=== PATIENT | female | born 1985 | race Caucasian/White ===

== ENCOUNTER → 2020-11-23 10:50 | Outpatient (CLI) | payer MEDICAID, SELFPAY ==
[2020-11-23 12:31] LABS: Hematocrit 34.3 % (37-47); Hemoglobin 11.3 g/dL (12.0-15.0); Mean Corp Hgb Conc 32.9 g/dL (32-36); Mean Corpuscular Hgb 31.4 pg (27.0-32.0); Mean Corpuscular Volume 95.3 fL (81-99); Mean Platelet Vol. 10.6 fl (6.2-12.0); Platelet Count 171 K/mm3 (150-450); RBC Distribution Width CV 12.5 % (11.6-14.6); RBC Distribution Width SD 43.2 fl (35.1-43.9); White Blood Count 11.6 K/mm3 (4.4-11.0)
[2020-11-23 12:37] LABS: Glucose Challenge Gest 1H 50g 134 mg/dL (70-140)
== END ==
PROVIDERS: PCP Family Medicine; Visit Provider Obstetrics & Gynecology
DX: Z34.83 Encounter for supervision of other normal pregnancy, third trimester (principal)
CPT/HCPCS: 36415; 82950; 85027

== ENCOUNTER → 2021-01-25 14:27 | Outpatient (CLI) | payer MEDICAID, SELFPAY | PROVIDERS: PCP Family Medicine | DX: Z36.85 Encounter for antenatal screening for Streptococcus B (principal) | CPT/HCPCS: 87081 ==

== ENCOUNTER 2021-02-12 14:45 | Inpatient (IN) | payer MEDICAID, SELFPAY ==
[2021-02-12] VITALS (17 sets, daily range): BP systolic 96–134; BP diastolic 57–85; PULSE 55–92; RESP 14–18; TEMP 36–36.8; O2SAT 96–100; BMI 25.2
[2021-02-12] MEDS: Lactated Ringers 1,000 ML 999 ML IV (15:00)
--- NOTE | 2021-02-12 15:10 | HP.PCM.OB_ITS ---
History and Physical Date of Admission: 02/12/21 Chief complaint: Contractions History of present illness: 35-year-old G6, P5 living 4 at 39 weeks and 3 days with TAMRA 02/16/2021 by LMP arrives with contractions. Denies headache, visual changes, chest pain, shortness of breath, nausea vomiting, right upper quadrant pain. Patient states good movement. 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 Denies alcohol use Family history: Denies a history DVT or PE Review of systems: Besides above pertinent positives a full review of systems was performed and found to be negative Physical exam: Vitals: Blood pressure 112/72 pulse 75 SPO2 97% on room air temp 98.2 Fahrenheit General: Normal-appearing no acute distress HEENT: Normocephalic atraumatic no cervical lymphadenopathy Cardiac/respiratory: No use of accessory muscles, nonlabored breathing Abdomen: Soft, nontender, gravid Pelvic exam: Cervical exam 4/70/-1. Bulging membranes Extremities: No peripheral edema normal peripheral pulses Psych: Normal affect normal demeanor nonpressured speech Labs: Pending Assessment plan: 35-year-old living for at 39 weeks and 3 days in labor with [facility]ingeal [facility] and was scheduled for primary section on 02/13/2021 at [facility] for these milena sons. Plan was to evaluate baby by neurosurgery at time of delivery for possible neurosurgery. At this time with labor and grand multipara too unstable to transport. Discussed with regional owner operator truck driver, to cover defect at time of delivery and plan shipment of baby to [facility]. After discussion with regional owner operator truck driver and transport team which is 1 hour from hospital, will expectantly manage as long as membranes intact and no further dilation to increase transport success. For 2 g Ancef. Educated mom on delivery plan and plan for transportation for baby, patient states understanding wish to proceed. Patient also wants permanent sterilization, has tubal consent. We will proceed forward with primary section as above with bilateral tubal ligation
[2021-02-12 15:20] LABS: Absolute Lymphocyte Count 1.97 X10^3/uL (0.83-4.51); Absolute Neutrophil Count 8.3 X10^3/uL (2.0-7.7); Basophil# 0.03 X10^3/uL; Basophil% 0.3 % (0-1); Eosinophil# 0.17 X10^3/uL; Eosinophils% 1.5 % (0-5); Hematocrit 33.3 % (37-47); Hemoglobin 11.3 g/dL (12.0-15.0); Lymphocyte # 1.97 X10^3/ul (0.83-4.51); Lymphocyte % 17.5 % (19-41); Mean Corp Hgb Conc 33.9 g/dL (32-36); Mean Corpuscular Hgb 31.4 pg (27.0-32.0); Mean Corpuscular Volume 92.5 fL (81-99); Mean Platelet Vol. 11.1 fl (6.2-12.0); Monocyte# 0.62 X10^3/uL; Monocyte% 5.5 % (0-10); NRBC Flagged by Analyzer 0 % (0-5); Neutrophil # 8.34 X10^3/uL (2.7-7.7); Neutrophil % 74.2 % (47-70); Platelet Count 199 K/mm3 (150-450); RBC Distribution Width CV 12.6 % (11.6-14.6); RBC Distribution Width SD 42.9 fl (35.1-43.9); White Blood Count 11.2 K/mm3 (4.4-11.0)
[2021-02-12] MEDS: Acetaminophen 500 MG Tablet 1000 MG PO ×2 (15:21→21:38)
[2021-02-12] MEDS: Sodium Citrate/Citric Acid 30 ML UDC PO (15:21)
[2021-02-12] MEDS: Cefazolin 2 GM in 0.9% Normal Saline 100 ML IV (16:00)
[2021-02-12] MEDS: Lactated Ringers 1,000 ML 150 ML IV (16:01)
--- NOTE | 2021-02-12 16:32 | FALS_PTH ---
PATIENT: GARETT HICKS LOC: [facility] U#:[id number] AGE/SX: 35/F ROOM: WP006 RE02/12/[address]: Dr. Ge Galeas MD : 1985 BED: 1 DIS: 02/13/2021 SPEC #: [id number] RECD: 02/12/21 17:48 STATUS: NARINDER REMac #: [id number] SELENA: 02/12/21 16:[address]: Ge Galeas DEPT: SURGICAL PATHOLOGY RECD BY: Inga Le ENTERED: 02/13/21 08:46 SP TYPE: FALL TUBES OTHR DR: Dr. Melanie Phoenix MD Tissues: Fallopian tube Procedures: Surgery Specimen Level II HEADER OPERATION: Tubal ligation PRE-OP DIAGNOSIS: Sterilization TISSUE SUBMITTED: Bilateral fallopian tubes MICROSCOPIC DIAGNOSIS Bilateral fallopian tubes, salpingectomies: Two complete segments of fallopian tubes. Benign paratubal cyst (2.5 cm). AM:maria fernanda 02/14/2021 MICROSCOPIC DESCRIPTION Slides are reviewed. GROSS DESCRIPTION Received in fixative is one container labeled with the patient's name and designated bilateral fallopian tubes. The specimen consists of two fallopian tubes with an average length of 8 cm and has an average diameter of 1 cm. Both fallopian tubes have normal fimbriated ends. No mass lesions are identified. One fallopian tube has a suture. The fallopian tube with suture has paratubal cyst containing clear fluid. The cyst measures 2.5 cm in greatest dimension. Medical Services Coordinator sections are submitted in two cassettes as follows: 1 - fallopian tube without suture, 2 - fallopian tube with suture and paratubal cyst. / AM:maria fernanda 02/13/21 TC:1 CPT: 15696, 99189
[2021-02-12 17:04] LABS: Amphetamine Urine VISTA NEGATIVE (<1000 ng/mL); Barbiturate Urine VISTA NEGATIVE (< 200 ng/mL); Benzodiazepine Urine VISTA NEGATIVE (< 200 ng/mL); Cocaine Urine VISTA NEGATIVE (< 300 ng/mL); Ecstacy Urine VISTA NEGATIVE (< 500 ng/mL); Methadone Urine VISTA NEGATIVE (< 300 ng/mL); PCP Urine VISTA NEGATIVE (< 25 ng/mL); THC Urine VISTA NEGATIVE (< 50 ng/mL); Vista UDS pH Range 7
--- NOTE | 2021-02-12 17:09 | EX.PCM.OBRPT ---
Details Operative Information Date of Procedure: 02/12/21 Pre-Operative Diagnosis: Term, meningeal encephalocele Post-Operative Diagnosis: Term, meningeal encephalocele sales and service technician #1: Margarita Herrera Findings Description of Procedure: Procedure: Primary low transverse section Via Pfannenstiel incision bilateral tubal ligation Surgeon: Ge Galeas MD Anesthesia: Spinal EBL: 600 cc IV fluids: 1100 cc Urine output: 400 cc Complications none Findings: Male in vertex position, Apgars 9/9. Occipital meningeal encephalocele noted. Normal uterus, tubes, and ovaries. Consent: Patient with term with planned primary section at tertiary center for occipital meningeal encephalocele arrives in labor in need of primary section now. Patient understands the risk of the procedure include but are not limited to visceral or vascular injury, prolonged hospitalization, blood loss need for transfusion, reoperation. Patient state understanding wish to proceed. All questions were answered consent was signed. Procedure: Patient was brought back to the OR where spinal anesthesia found to be adequate. 2 g Ancef were given for infection prophylaxis. Patient was prepared and draped in a dorsal supine position with leftward tilt. A Pfannenstiel incision was made at the skin with a scalpel. The incision was carried down to the fascia with a scalpel. The fascia was excised and extended laterally. Inferior aspect of the fascia was grasped and the underlying rectus and pyramidalis muscle were dissected off sharply with Daly scissors. In similar fashion the superior aspect of the fascia was grasped and the underlying rectus muscle was dissected off sharply. Rectus muscle was dissected at the midline down to the level of the pubic symphysis. Preperitoneal fatty tissue was noted and peritoneum was entered bluntly. Peritoneum was extended superiorly and inferiorly with good visualization of bladder. Bladder blade was inserted and vesicouterine peritoneum was identified. Low transverse hysterotomy was made. Hand was placed into the incision and the head was carefully brought into the incision and gentle fundal pressure was applied. Head and shoulders were delivered with ease. Occipital meningeal encephalocele were covered with Telfa soaked in normal saline. Baby was handed off to nursing. Placenta was delivered via cord traction and fundal massage. Uterus was closed in a continuous running fashion. Second layer was performed. Right fallopian tube was identified out to the fimbriae and using a LigaSure device the mesosalpinx was cut and cauterized, right fallopian tube sent to pathology. In a similar fashion the left fallopian tube was identified out to the fimbriae and using a LigaSure device the mesosalpinx was cut and cauterized left fallopian tube sent to pathology. Good hemostasis was noted bilaterally. Uterus was placed back in the abdominal cavity and incision was reinspected, good hemostasis was noted. Rectus muscle was reapproximated with horizontal mattress sutures. Fascia was closed in a continuous running fashion. Skin was closed in a subcuticular fashion. All counts correct x2. Patient tolerated the procedure well and was brought to recovery in a stable condition.
[2021-02-12 17:50] LABS: Pathology Specimen OB SEE PATHOLOGY REPORT
[2021-02-12] MEDS: Ibuprofen 600 MG Tablet PO ×2 (18:22→23:35)
[2021-02-12] MEDS: Oxytocin 30 units/NS 500 ml 30 UNITS/500 ML IV.SOLN 167 UNITS IV (18:36)
[2021-02-12] MEDS: Lactated Ringers 1,000 ML 100 ML IV (21:38)
[2021-02-13] VITALS (9 sets, daily range): BP systolic 88–115; BP diastolic 40–77; PULSE 55–72; RESP 16–18; TEMP 36.1–36.6; O2SAT 99–100
[2021-02-13] MEDS: Acetaminophen 500 MG Tablet 1000 MG PO ×2 (04:15→10:09)
[2021-02-13] MEDS: Ibuprofen 600 MG Tablet PO ×2 (06:17→12:17)
[2021-02-13 06:24] LABS: Hematocrit 28.2 % (37-47); Hemoglobin 9.5 g/dL (12.0-15.0); Mean Corp Hgb Conc 33.7 g/dL (32-36); Mean Corpuscular Hgb 31.5 pg (27.0-32.0); Mean Corpuscular Volume 93.4 fL (81-99); Mean Platelet Vol. 11.2 fl (6.2-12.0); Platelet Count 182 K/mm3 (150-450); RBC Distribution Width CV 12.5 % (11.6-14.6); RBC Distribution Width SD 43.2 fl (35.1-43.9); Red Blood Count 3.02 M/mm3 (4.2-5.4)
--- NOTE | 2021-02-13 08:38 | PCM.DC ---
Discharge Instructions Diet Discharge Diet: No restrictions Activity Discharge Activity: Return to Normal Activity, May Drive and May Shower May resume sexual activity in: 4-6 weeks Weight Bearing Status: Weight bearing as tolerated Dressing / Incision Call your doctor if your incision/area has: Continuous Slow Oozing and Foul Smelling Discharge Call your doctor if you observe: Fever of 101 or Higher, Shortness of breath and Chest pain Follow Up Care Please Follow Up With: Ge Galeas MD When: 2 weeks postoperatively, 4 to 6 weeks Test Results: Test results from this visit will be discussed in further detail at your follow-up appointment, if applicable. Discharge Plan Admission Admit Date/Time: 02/12/21 14:45 Attending Provider: Ge Galeas Primary Care Provider: Melanie Phoenix Discharge Orders/Prescriptions Prescriptions: No Action 1 mg Tablet 1 tab PO DAILY RF: 0 Disposition Discharge Orders: Discharge Patient (Routine); Ordered 02/13/21 Ordered By: Dr. Ge Galeas
--- NOTE | 2021-02-13 08:38 | PCM.PN.OB ---
Subjective Subjective No overnight complaints. Pain well controlled. Objective Data Objective Data Vital Signs: Vital Signs Temp Pulse Resp BP Pulse Ox 97.3 F L 59 L 16 101/58 L 99 02/13/21 04:30 02/13/21 06:14 02/13/21 06:14 02/13/21 04:30 02/13/21 06:14 Oxygen Delivery Method Room Air Weight: 147 lb 0.773 oz Body Mass Index (BMI) 25.2 Intake & Output: Intake and Output for Last 24 Hours 02/11/21 02/12/21 02/13/21 23:59 23:59 23:59 Intake Total 3140 / 3140 666.67 / 666.67 Output Total 2250 / 2250 1400 / 1400 Balance 890 / 890 -733.33 / -733.33 Lab / Micro Data Result Diagrams: 02/13/21 04:45 Labs: Laboratory Results - last 24 hr 02/12/21 15:00: WBC 11.2 H, RBC 3.60 L, Hgb 11.3 L, Hct 33.3 L, MCV 92.5, MCH 31.4, MCHC 33.9, RDW Std Deviation 42.9, RDW Coeff of Bette 12.6, Plt Count 199, MPV 11.1, Immature Gran % (Auto) 1.000 H, Neut % (Auto) 74.2 H, Lymph % (Auto) 17.5 L, [place] % (Auto) 5.5, Eos % (Auto) 1.5, Baso % (Auto) 0.3, Absolute Neuts (auto) 8.3 H, Absolute Lymphs (auto) 1.97, Nucleated RBC % 0 02/12/21 15:00: Blood Type B POSITIVE, Antibody Screen NEGATIVE 02/12/21 16:19: Urine Opiates Screen NEGATIVE, Urine Methadone Screen NEGATIVE, Ur Barbiturates Screen NEGATIVE, Ur Phencyclidine Scrn NEGATIVE, Ur Amphetamines Screen NEGATIVE, U Methamphetamin-MDMA NEGATIVE, U Benzodiazepines Scrn NEGATIVE, Urine Cocaine Screen NEGATIVE, U Cannabinoids Screen NEGATIVE, Ur Drug Screen Comment 02/13/21 04:45: WBC 11.0, RBC 3.02 L, Hgb 9.5 L, Hct 28.2 L, MCV 93.4, MCH 31.5, MCHC 33.7, RDW Std Deviation 43.2, RDW Coeff of Bette 12.5, Plt Count 182, MPV 11.2 Micro: Microbiology 02/12/21 15:10 Nasal Secretion SARS-CoV-2 Antigen (Rapid) - Final Physical Exam Const alert, oriented x3, no apparent distress, average body habitus, healthy appearing and well nourished HEENT normocephalic and moist oral mucous membranes Head and Scalp: atraumatic Face and Sinus: normal facial exam Eyes PERRL Neck full ROM Resp normal respiratory effort, no retractions and no use of accessory muscles GI GI Narrative: Bandage clean dry and intact Extremity normal to inspection, full ROM and no clubbing, cyanosis or edema Psych mental status grossly normal, affect normal, speech normal and activity/motor behavior normal Assessment & Plan (1) delivery delivered: PLAN: Postoperative day 1 status post primary section for occipital meningeal encephalocele. Baby to have surgery today and [facility]. Patient pain well controlled. Okay to discharge home today
[2021-02-13] MEDS: Senna/Docusate Sodium 1 Tablet PO (10:08)
== END 2021-02-13 13:20 | disposition home or self-care (01) | DRG 539 ==
LOC: WPOUT 14:50 → WP 14:50
PROVIDERS: Admitting Provider Obstetrics & Gynecology; PCP Family Medicine; Visit Provider Obstetrics & Gynecology
DX: O36.8930 Maternal care for other specified fetal problems, third trimester, not applicable or unspecified (principal); O99.334 Smoking (tobacco) complicating childbirth; F17.210 Nicotine dependence, cigarettes, uncomplicated; Z37.0 Single live birth; Z30.2 Encounter for sterilization; Z3A.39 39 weeks gestation of pregnancy; Z87.728 Personal history of other specified (corrected) congenital malformations of nervous system and sense organs
CPT/HCPCS: 59025; 59050; 80307; 85025; 85027; 86850; 86900; 86901; 87426; 88302; 99218; J7120; G0378; J2405